=== PATIENT | female | born 1980 | race Caucasian/White ===

== ENCOUNTER 2016-04-08 20:50 | Emergency (ER) | payer MEDICAID | END 2016-04-08 21:52 | disposition home or self-care (01) | LOC: ER 20:50 | DX: S93.521A Sprain of metatarsophalangeal joint of right great toe, initial encounter (principal); W01.0XXA Fall on same level from slipping, tripping and stumbling without subsequent striking against object, initial encounter; Y92.003 Bedroom of unspecified non-institutional (private) residence as the place of occurrence of the external cause; F17.210 Nicotine dependence, cigarettes, uncomplicated ==